=== PATIENT | male | born 1935 | race Caucasian/White ===

== ENCOUNTER → 2016-07-28 | Outpatient (CLI) | payer MEDICARE, OTHER | END | disposition home or self-care (01) | LOC: GMAL 10:23 | PROVIDERS: ATTEND Family Medicine | DX: D53.9 Nutritional anemia, unspecified (principal); M10.9 Gout, unspecified ==

== ENCOUNTER → 2016-08-31 | Outpatient (CLI) | payer MEDICARE, OTHER | END | disposition home or self-care (01) | LOC: GMAL 12:19 | PROVIDERS: ATTEND Family Medicine | DX: N18.4 Chronic kidney disease, stage 4 (severe) (principal) ==

== ENCOUNTER → 2016-10-19 | Outpatient (CLI) | payer MEDICARE, OTHER | END | disposition home or self-care (01) | LOC: GMAL 10:08 | PROVIDERS: ATTEND Family Medicine | DX: D51.3 Other dietary vitamin B12 deficiency anemia (principal); N18.4 Chronic kidney disease, stage 4 (severe); E55.9 Vitamin D deficiency, unspecified ==

== ENCOUNTER → 2016-12-12 | Outpatient (CLI) | payer MEDICARE, OTHER | END | disposition home or self-care (01) | LOC: GMAL 10:15 | PROVIDERS: ATTEND Family Medicine | DX: N18.4 Chronic kidney disease, stage 4 (severe) (principal) ==

== ENCOUNTER → 2017-03-22 | Outpatient (CLI) | payer MEDICARE, OTHER | END | disposition home or self-care (01) | LOC: GMAL 08:58 | PROVIDERS: ATTEND Family Medicine | DX: N18.4 Chronic kidney disease, stage 4 (severe) (principal); D63.1 Anemia in chronic kidney disease; M10.9 Gout, unspecified ==

== ENCOUNTER → 2017-04-20 | Outpatient (CLI) | payer MEDICARE | LOC: GMAL 10:54 | PROVIDERS: ATTEND Family Medicine | DX: E55.9 Vitamin D deficiency, unspecified (principal) ==

== ENCOUNTER → 2017-05-29 | Outpatient (CLI) | payer MEDICARE | LOC: GMAL 09:18 | PROVIDERS: ATTEND Family Medicine | DX: D53.9 Nutritional anemia, unspecified (principal); N18.4 Chronic kidney disease, stage 4 (severe); R53.82 Chronic fatigue, unspecified ==

== ENCOUNTER → 2017-07-20 | Outpatient (CLI) | payer MEDICARE | LOC: GMAL 12:09 | PROVIDERS: ATTEND Family Medicine | DX: N18.4 Chronic kidney disease, stage 4 (severe) (principal) ==

== ENCOUNTER → 2017-10-04 | Outpatient (CLI) | payer MEDICARE | LOC: GMAL 14:12 | PROVIDERS: ATTEND Family Medicine | DX: D51.3 Other dietary vitamin B12 deficiency anemia (principal); N18.4 Chronic kidney disease, stage 4 (severe); E55.9 Vitamin D deficiency, unspecified; E11.9 Type 2 diabetes mellitus without complications; E78.4 Other hyperlipidemia ==

== ENCOUNTER → 2017-10-18 | Outpatient (CLI) | payer MEDICARE | LOC: GMAL 09:05 | PROVIDERS: ATTEND Family Medicine | DX: N18.4 Chronic kidney disease, stage 4 (severe) (principal); M10.9 Gout, unspecified ==

== ENCOUNTER → 2017-11-22 | Outpatient (CLI) | payer MEDICARE | LOC: GMAL 10:56 | PROVIDERS: ATTEND Family Medicine | DX: D53.9 Nutritional anemia, unspecified (principal); N18.4 Chronic kidney disease, stage 4 (severe); M10.9 Gout, unspecified ==

== ENCOUNTER → 2018-01-15 | Outpatient (CLI) | payer MEDICARE | LOC: GMAL 12:47 | PROVIDERS: ATTEND Family Medicine | DX: N18.4 Chronic kidney disease, stage 4 (severe) (principal); M10.9 Gout, unspecified; E55.9 Vitamin D deficiency, unspecified ==

== ENCOUNTER 2018-03-31 18:06 | Emergency (ER) | payer MEDICARE ==
[2018-03-31] MEDS ORDERED: LIDOCAINE 2% 100 MG/5 ML SYG IV ONE (18:07)
[2018-03-31] MEDS ORDERED: EPINEPHrine INJ 0.1 MG/ML 10 ML SYG IV ONE (18:07)
[2018-03-31 18:36] VITALS: BP 160/107; TEMP 96.8
--- NOTE | 2018-03-31 19:27 | ED.PDOC ---
History of Present Illness - General Chief Complaint: Unresponsive Stated Complaint: cardiac arrest Time Seen by Provider: 03/31/18 19:22 Source: EMS Exam Limitations: clinical condition - History of Present Illness Initial Comments: patient came to the emergency room in cardiac arrest. Patient was sitting with a grandchild in another room when his heard something fall. She found him unresponsive on the floor. On arrival of EMS patient had no pulse, no respiratory effort, and pupils were fixed and dilated. He was found to be in V. fib and the patient was given 3 rounds of epinephrine prior to arrival and intubated. On arrival patient was intubated with gross blood in the endotracheal tube and EMS on site stated that was coming from the lungs. Patient had no pulse and no respiratory effort. First several rhythm checks showed ventricular fibrillation and patient was administered shocks according to protocol. Additionally patient was given multiple rounds of epinephrine and lidocaine. Please see code sheet for full note. After patient had arrived and been worked on for several minutes family was informed on condition of the patient. Attempts to resuscitate patient were continued for several more rounds but at no time was respiratory effort, or pulse able to be obtained. Patient was found then to be in asystole and to not be not responding to cardiopulmonary resuscitate her a efforts. It was decided to stop efforts as no response could be found and patient remained completely unresponsive. at 1825 efforts were stopped and no pulse, heart rhythm, respirations were seen for > 2 min. No response to pain and pupils were fixed and dilated. Patient's family was at bedside and appropriate. Allergies/Adverse Reactions: Allergies NO KNOWN ALLERGY Allergy (Unverified 04/15/13 09:26) Home Medications: Ambulatory Orders Allopurinol 100 mg PO BID 04/15/13 Amlodipine Besylate-Olmesartan [Jarred] 10 - 40 tab PO DAILY 04/15/13 Aspirin [Aspirin 81] 81 mg PO DAILY 04/15/13 Carvedilol 25 mg PO BID 04/15/13 Indapamide 2.5 mg PO DAILY 04/15/13 Rosuvastatin Calcium [Crestor] 10 mg PO DAILY 04/15/13 Sitagliptin Phosphate [Januvia] 25 mg PO DAILY 04/15/13 glipiZIDE [(None)] 5 mg PO TID 04/15/13 Review of Systems - Review of Systems Review of Systems: 03/31/18 19:27 NA secondary to cardiac arrest Past Medical History (General) - Patient Medical History Hx Congestive Heart Failure: No Hx Diabetes: Yes Hx Renal Disease: Yes - dialysis Surgical History: noncontributory - Vaccination History Hx Influenza Vaccination: - unknown Hx Pneumococcal Vaccination: - unknown Family Medical History - Family History Father Family History: Unknown Living Status: Unknown Physical Exam - Physical Exam General Appearance: Other - on stretcher, intubated with BRB in ETT Eye Exam: bilateral other - fixed and dilated to 4 mm Neck: supple, normal inspection Respiratory: other - lungs clear bilaterally with bagging Cardiovascular/Chest: other - no heart activity, CPR on going on arrival with sternum sunk in Gastrointestinal/Abdominal: soft Neurologic: other - bilateral pupils are fixed and non responsive Progress - Progress Progress: 03/31/18 19:29 see HPI and code sheet Departure - Departure Clinical Impression: Cardiac arrest Disposition: Departure Forms: ED Discharge - Pt. Copy, Patient Portal Self Enrollment Referrals: Mariano Freeman III, MD [Primary Care Provider] - 1-2 Weeks Home Medications: Ambulatory Orders Allopurinol 100 mg PO BID 04/15/13 Amlodipine Besylate-Olmesartan [Jarred] 10 - 40 tab PO DAILY 04/15/13 Aspirin [Aspirin 81] 81 mg PO DAILY 04/15/13 Carvedilol 25 mg PO BID 04/15/13 Indapamide 2.5 mg PO DAILY 04/15/13 Rosuvastatin Calcium [Crestor] 10 mg PO DAILY 04/15/13 Sitagliptin Phosphate [Januvia] 25 mg PO DAILY 04/15/13 glipiZIDE [(None)] 5 mg PO TID 04/15/13
[2018-03-31 20:16] VITALS: O2SAT 0
== END 2018-03-31 20:15 | disposition expired ==
LOC: ER 18:06
DX: I46.9 Cardiac arrest, cause unspecified (principal); N18.6 End stage renal disease; E11.22 Type 2 diabetes mellitus with diabetic chronic kidney disease; Z99.2 Dependence on renal dialysis; Z79.82 Long term (current) use of aspirin; Z79.899 Other long term (current) drug therapy